=== PATIENT | male | born 1980 | race Caucasian/White ===

== ENCOUNTER 2020-12-22 11:38 | Outpatient (CLI) | payer OTHER, SELFPAY ==
--- NOTE | ~2020-12-22 | US_ITS ---
EXAMINATION: US venous doppler [facility] DATE: 12/22/2020 12:16 INDICATION: Left lower limb pain. TECHNIQUE: Grayscale ultrasound images without and with compression and Doppler ultrasound images of the left lower extremity veins were obtained. COMPARISON: None. FINDINGS: The visualized portions of left common femoral vein, profunda (deep) femoral vein, femoral vein, popl iteal vein, peroneal veins, posterior tibial veins, and greater saphenous vein outflow are patent. IMPRESSION: 1. No deep venous thrombosis. Reviewed, dictated and finalized at location A.
== END 2020-12-22 11:39 | disposition home or self-care (01) ==
PROVIDERS: PCP Family Medicine; Visit Provider Family Medicine
DX: M79.606 Pain in leg, unspecified (principal); R60.0 Localized edema
CPT/HCPCS: 93971

== ENCOUNTER 2022-08-08 14:05 | Emergency (ER) | payer OTHER, SELFPAY ==
--- NOTE | 2022-08-08 14:38 | PC.NURSE ---
PT DECIDED TO LEAVE ER PRIOR TO EVALUATION. AWARE TO RETURN IF NEEDED. AMBULATORY FROM PREMISES WITH STEADY GAIT
== END 2022-08-08 15:09 | disposition left against medical advice (07) ==
PROVIDERS: PCP Family Medicine
DX: Z53.21 Procedure and treatment not carried out due to patient leaving prior to being seen by health care provider (principal)
CPT/HCPCS: 99199

== ENCOUNTER 2022-10-04 14:49 | Outpatient (CLI) | payer OTHER, SELFPAY ==
--- NOTE | ~2022-10-04 | CT_ITS ---
EXAMINATION: CT abdomen pelvis wo con DATE: 10/04/2022 15:23 INDICATION: Hydronephrosis TECHNIQUE: Computed tomography (CT) of the abdomen and pelvis was performed without intravenous contr ast. The dose-length product (DLP) was 1059.28 mGy-cm. Automated exposure control and iterative recon struction technique were employed. COMPARISON: 05/16/2015 FINDINGS: Minimal dependent atelectasis is present in the lung bases. The heart size is normal. Calci fied coronary artery atherosclerosis is noted. The gallbladder is surgically absent. The liver, splee n, pancreas, and adrenal glands are normal. There is moderate bilateral hydroureteronephrosis. Multip le bladder diverticula are noted. No pathologically enlarged abdominal or pelvic lymph nodes are iden tified. No free intraperitoneal gas or evidence of bowel obstruction. The appendix is normal. There i s a small fat-containing umbilical hernia. IMPRESSION: 1. Moderate bilateral hydroureteronephrosis of unclear etiology. 2. Multiple bladder diverticula. 3. Calcified coronary artery atherosclerosis noted. Reviewed, dictated and finalized at location L. ERVATION OFFICER
== END 2022-10-04 14:50 | disposition home or self-care (01) ==
PROVIDERS: PCP Family Medicine; Visit Provider Family Medicine
DX: R93.41 Abnormal radiologic findings on diagnostic imaging of renal pelvis, ureter, or bladder (principal); N13.30 Unspecified hydronephrosis; N32.3 Diverticulum of bladder; I25.10 Atherosclerotic heart disease of native coronary artery without angina pectoris
CPT/HCPCS: 74176

== ENCOUNTER 2025-03-24 08:06 | Emergency (ER) | payer OTHER, SELFPAY ==
--- NOTE | 2025-03-24 08:12 | ED.URI ---
HPI - URI/Sore Throat General Chief Complaint: Upper Respiratory Infection Stated Complaint: strep symptoms Time Seen by Provider: 03/24/25 08:25 Source: patient and RN notes reviewed Mode of arrival: ambulatory Limitations: no limitations History of Present Illness HPI Narrative: 45-year-old male presents with concern for 2 day history of sore throat, general malaise, tactile fever and fatigue. Reports he was exposed to strep at work. He has taken DayQuil. He denies runny nose, stuffy nose, cough, headache, stomach ache. Reports sore throat is not that painful but he just feels poorly. MD elicited complaint: sore throat Related Data Home Medications ?Medication ?Instructions ?Recorded ?Confirmed ?Last Taken ?Type No Home Medications 03/24/25 03/24/25 Unknown History Allergies Allergy/AdvReac Type Severity Reaction Status Date / Time Sulfa (Sulfonamide Allergy Intermediate Body rash Verified 08/09/22 15:11 Antibiotics) sulfamethizole Allergy Intermediate rash Verified 08/09/22 15:11 trimethoprim Allergy Intermediate rash Verified 08/09/22 15:11 terbinafine Allergy Mild RASH Verified 08/09/22 15:11 flomax AdvReac Intermediate Vomiting Uncoded 08/12/22 16:05 Review of Systems Review of Systems: CONSTITUTIONAL: Reports malaise, fatigue, tactile fever. EYES: Denies visual changes, redness, or discharge. ENT: Denies rhinorrhea, congestion, sinus pain, otalgia. Reports sore throat. CARDIOVASCULAR: Denies chest pain, palpitations, or edema. RESPIRATORY: Denies cough. Denies dyspnea. GASTROINTESTINAL: Denies abdominal pain, nausea, vomiting, diarrhea SKIN: Denies rash or itching. MUSCULOSKELETAL: Denies myalgia. NEUROLOGIC: Denies headache. All systems reviewed & are unremarkable except as noted in HPI and below PMFSH Past Medical History Medical History (Updated 03/24/25 @ 08:37 by Astrid Saucedo NP) MDD (major depressive disorder), recurrent episode, moderate Encounter for preventative adult health care examination Chronic fatigue Family History Family History Mother Hypertension Family history of malignant neoplasm of breast in first degree relative Family history of malignant neoplasm of breast Family history of malignant neoplasm of ovary Patient's mother is in good health Father Family history of diabetes mellitus in first degree relative Family history of type 1 diabetes mellitus Patient's father is in good health Family history of type 2 diabetes mellitus Sibling Family history of diabetes mellitus in first degree relative Family history of type 1 diabetes mellitus Patient's sister is in good health Other Asthma Diabetes mellitus Family history of lung cancer Family history of malignant neoplasm of cervix Family history of throat cancer Social History Social History (Updated 08/12/22 @ 15:41 by Cici Funk) Social History: Smoking packs per day: 1 Smoking cigarettes per day: 20.0 Years smoked: 10 Smoking pack-years: 10.00 Smoking status: Former smoker Tobacco type: cigarettes Second hand tobacco smoke exposure: No Smoking end date: 08/28/11 Alcohol intake: current Alcohol use details: Once a month Substance use: never Substance use type: does not use Living arrangements: with family Occupation/Education: occupation Gender identity (if verbalized by the patient): Male Sexual Orientation (if Verbalized by the Patient): Straight or Heterosexual Comments At time of signature, agree with nursing past medical, surgical, social and family history. There is no relevant family history pertinent to the presenting complaint Exam Narrative: GENERAL: Well-appearing, well-nourished, and in no acute distress. HEAD: Normocephalic EYES: PERRLA, conjunctivae clear ENT: Nares clear. Mucous membranes moist. TM pearly alvarado with sharp light reflex bilaterally; no tragal tenderness. Oropharynx not erythematous without lesions. Tonsils not enlarged and without exudate, no drooling, no hoarseness, no trismus, uvula midline. NECK: Supple. No lymphadenopathy CHEST: Clear to auscultation, breath sounds equal. No wheezing, rhonchi, rales, or stridor. No respiratory distress, speaks in full sentences. HEART: Regular rate and rhythm. No murmur heard. SKIN: Warm, dry, no rash. NEURO: Alert and oriented x3. PSYCH: Normal mood and affect Course Course Emergency Course: Patient is aware of diagnosis, understands and agrees to treatment plan. Anticipatory guidance given. Patient agrees to follow-up as directed and is aware of reasons to seek care at the emergency department. Portions of this record may have been created with voice recognition software Level of Care: Express Care Visit Vital Signs Vital signs: Reviewed. MDM - URI/Sore Throat MDM Narrative Medical decision making narrative: Differential diagnosis considered: Ng virus, strep pharyngitis, allergic rhinitis, upper respiratory tract infection, sinusitis, rhinosinusitis, nasopharyngitis. viral pharyngitis, otitis media, otitis externa, pneumonia, bronchitis, viral cough syndrome, viral syndrome, and influenza. Exam findings show no acute concerns or changes; patient is non-toxic appearing and is in no distress. Patient is appropriate for outpatient treatment and follow-up. Lab Data Attestation: I reviewed the patient's lab results. Critical Care Time Critical Care Time Critical Care Time: No Discharge Plan Discharge Clinical Impression: Viral infection Patient Disposition: Home Condition: Stable Instructions: Viral Syndrome (ED) Additional Instructions: Your rapid strep swab was negative today at [facility]. A throat culture will be sent to the laboratory for further testing. If the test is positive, you will receive a phone call within 48 hours and an appropriate antibiotic will be initiated at that time. Your symptoms are likely due to a viral illness, which is not treated with antibiotics. Viral symptoms can be present for up to a few weeks. -Alternate Tylenol and Motrin per package directions for fever or pain. -Antihistamine medication such as Benadryl at night and Zyrtec during the day can help improve symptoms. -Eat and drink things that are easy to swallow, like tea or soup, or popsicles to suck on. -Oral rinses such as: Salt water gargles and/or may use topical anesthetic (eg. Chloraseptic spray) or lozenges to relieve dryness or throat pain). -Frequent hand washing or hand enrollment management vice president is one of the best ways to prevent spread of infection. -Follow up with primary care provider in 2-3 days if condition is not improving; or seek ER visit if you have trouble breathing, cannot drink enough fluids, have muffled voice, difficulty opening your mouth, or severe swelling. Patient Language: Sudanese Prescriptions: No Action alprazolam 0.25 mg tablet 0.25 mg PO TID PRN (Reason: anxiety) Qty: 20 0RF doxazosin 4 mg tablet 4 mg PO DAILY Qty: 30 3RF bethanechol chloride 10 mg tablet 10 mg PO TID Qty: 90 0RF ciprofloxacin HCl 500 mg tablet 500 mg PO Q12H Qty: 20 0RF ketoconazole 2 % cream 1 applic topical BID Qty: 60 0RF clobetasol 0.05 % cream 1 applic topical BID Qty: 60 0RF ivermectin 3 mg tablet 15 mg PO WEEKLY Qty: 20 0RF Rx Instructions: 5tabs po day #1, #2, #8,#15 permethrin 5 % cream 1 applic topical Q14D Qty: 60 0RF Rx Instructions: apply second treatment 14 days after first treatment if live lice remain lidocaine HCl [Lidocaine Viscous] 2 % solution 5 ml mucous membrane QID PRN (Reason: pain) Qty: 600 3RF Follow-up/Referrals: UNKNOWN,DOCTOR [Primary Care Provider] - Stand Alone Forms: Work/School Release IP Time of Disposition: 08:37
--- OUTSIDE RECORDS SUMMARY | 2025-03-24 08:14 | XMS_ITS | Clinical Summary ---
Author Organization [facility] Address [address] [place] [address] Care Team Providers Care Financial Reporting Accountant Name Role Phone Unavailable Primary Care Provider Unavailabl e Social History Tobacco Use Types Packs/Day Years Used Date Smoking Tobacco: Never Assessed Sex and Gender Information Value Date Recorded Sex Assigned at Not on file Legal Sex Male 11:05 AM CDT Gender Identity Not on file Sexual Orientation Not on file Plan of Treatment Health Maintenance Due Date Last Done Comments Hepatitis C Virus (HCV) Screening 1980 TdaP Immunization 1980 Human Papillomavirus (HPV) Immunization (1 - Male 3-dose series) 01/16/1995 Hepatitis B Immunization (1 of 3 - 19+ 3-dose series) 01/16/1999 SARS-COV-2 Immunization ( season) 2024 Cologuard 01/16/2025 Colonoscopy 01/16/2025 Colorectal Cancer Screening 01/16/2025 Immunochemical Fecal Occult Blood 01/16/2025 Influenza Immunization (#1) 2025 Respiratory Syncytial Virus (RSV) Immunization (Adult) (1 - 1-dose 75+ series) 01/16/2055 Meningococcal Immunization (ACWY) Aged Out No longer eligible based on patient's age to complete this topic Pneumococcal Immunization Combined Aged Out No longer eligible based on patient's age to complete this topic Rotavirus Immunization Aged Out No lo nger eligible based on patient's age to complete this topic Insurance [employer] on file
--- OUTSIDE RECORDS SUMMARY | 2025-03-24 08:14 | XMS_ITS | Clinical Summary ---
Author Organization [facility] Address [address] [place] [address] Care Team Providers Care Lead Business Systems Analyst Name Role Phone Lis Leonardo MD Primary Care Provider [phone] Allergies Active Allergy Reactions Criticality Noted Date Comments Fluconazole Rash Low 08/08/2022 Sulfa Antibiotics Rash,Swelling Low 08/08/2022 Medications sertraline (ZOLOFT) 25 MG tablet Take 25 mg by mouth daily. Active Acetaminophen-Co deine (TYLENOL/CODEINE #3) 300-30 MG tabletIndication s:Acute Pain < 3 Day Supply Take 1 tablet by mouth every 4 (four) hours as needed for Pain. Indications : Acute Pain < 3 Day Supply 10 tablet 08/08/2022 Active Active Problems No known active problems Social History Tobacco Use Types Packs/Day Years Used Date Smoking Tobacco: Never Smokeless Tobacco: Never Tobacco Cessation:Counseling Given: Not Answered Alcohol Use Standard Drinks/Week Comments Yes 0 (1 standard drink = 0.6 oz pur e alcohol) occasionally Sex and Gender Information Value Date Recorded Sex Assigned at Not on file Legal Sex Male 5:05 PM CDT Gender Identity Not on file Sexual Orientation Not on file Last Filed Vital Signs Vital Sign Reading Time Taken Comments Blood Pressure 142/79 08/08/2022 6:25 PM SWINE NUTRITIONIST Pulse 71 08/08/2022 6:25 PM SWINE NUTRITIONIST Temperature 36.6 C (97.8 F) 08/08/2022 6:25 PM SWINE NUTRITIONIST Respiratory Rate 16 08/08/2022 6:25 PM SWINE NUTRITIONIST Oxygen Saturation 98% 08/08/2022 6:25 PM SWINE NUTRITIONIST Inhaled Oxygen Concentration - - Weight 113.4 kg (250 lb) 08/08/2022 3:48 PM SWINE NUTRITIONIST Height 193 cm (6' 4) 08/08/2022 3:48 PM SWINE NUTRITIONIST Body Mass Index 30.43 08/08/2022 3:48 PM SWINE NUTRITIONIST Plan of Treatment Health Maintenance Due Date Last Done Comments Colorectal Cancer Screening Colonoscopy (10 Years) 1980 Annual Physical 01/16/1983 Hepatitis C 01/16/1998 DTaP, Tdap and Td Vaccines ( 1 - Tdap) 01/16/1999 Hepatitis B Vaccines (1 of 3 - 19+ 3-dose series) 01/16/1999 HPV Vaccines (1 - 3-dose SCD M series) 01/16/2007 COVID-19 Vaccine ( - 2023-2 5 season) 2024 04/02/2021, 11/12/2020 Meningococcal B Vaccine Aged Out No l onger eligible based on patient's age to complete this topic Meningococcal Vaccine Aged Out No sobia feliciano eligible based on patient's age to complete this topic Pneumococcal Vaccine: Pediatrics (0 to 5 Years) and At-Risk Patients (6 to 49 Years) Aged Out No longer eligible b ased on patient's age to complete this topic RSV Immunizations Under 20 Months Aged Out No longer eligible b ased on [place]'s [place] [phone] Care Teams Lead Business Systems Analyst Relationship Specialty Start Date End Date Lis Leonardo MD [id number] [facility] [address] [place] [address] PCP - General FAMILY PRACTICE 08/08/22
[2025-03-24 08:18] VITALS: BP 135/81; PULSE 67; RESP 16; TEMP 36.3; O2SAT 100
[2025-03-24 08:33] LABS: EDSTREPNEGPOS1 Negative (Negative)
== END 2025-03-24 08:39 | disposition home or self-care (01) ==
PROVIDERS: Emergency Provider Nurse Practitioner
DX: B34.9 Viral infection, unspecified (principal); Z87.891 Personal history of nicotine dependence
CPT/HCPCS: 87081; 87880; 99213; G0463